=== PATIENT | male | born 1975 | race Caucasian/White ===

== ENCOUNTER 2017-05-28 22:52 | Emergency (ER) | payer OTHER ==
[2017-05-28 23:07] VITALS: BP 117/71; PULSE 109; RESP 18; TEMP 98; O2SAT 95
[2017-05-28] MEDS ORDERED: PAXI30TA7 PO (23:30)
[2017-05-28] MEDS ORDERED: D 50CAP2 PO (23:30)
[2017-05-28] MEDS ORDERED: HYDR12.56 PO (23:30)
[2017-05-28] MEDS ORDERED: LISI2.5T3 PO (23:30)
[2017-05-28] MEDS ORDERED: ALPR.25 PO (23:30)
[2017-05-28] MEDS ORDERED: MULTTAB67 PO (23:30)
[2017-05-28 23:53] LABS: BASOPHIL # 0.1 TH/MM3 (0-0.2); EOSINOPHIL # 0.2 TH/MM3 (0-0.4); EOSINOPHIL % 1.9 % (0.0-4.0); HEMATOCRIT 44.4 % (39.0-51.0); HEMOGLOBIN 14.8 GM/DL (13.0-17.0); LYMPH % 51.6 % (9.0-44.0); LYMPHOCYTE # 4.1 TH/MM3 (1.0-4.8); MEAN CELL VOLUME 88.5 FL (80.0-100.0); MEAN CORPUSCULAR HEMOGLOBIN 29.5 PG (27.0-34.0); MEAN CORPUSCULAR HGB CONC 33.3 % (32.0-36.0); MEAN PLATELET VOLUME 8.3 FL (7.0-11.0); MONO % 8.5 % (0.0-8.0); MONOCYTE # 0.7 TH/MM3 (0-0.9); PLATELET COUNT 253 TH/MM3 (150-450); RED BLOOD COUNT 5.01 MIL/MM3 (4.50-5.90); RED CELL DISTRIBUTION WIDTH 15.8 % (11.6-17.2)
--- NOTE | 2017-05-29 00:08 | PD ---
HPI Chief Complaint: Psychiatric Symptoms Time Seen by Provider: 23:41 Travel History International Travel<30 days: No Contact w/Intl Traveler<30days: No Traveled to known affect area: No History of Present Illness HPI Patient is a 41-year-old male presenting to the emergency department for psychiatric evaluation under Jarquin act. Patient reports a history of alcoholism , he had been sober for the last 8 months when he "slipped up" tonight. He reports drinking a few beers. Patient was allegedly caught drinking in secret by his mother. He then became upset per the Jarquin act report, obtained a shotgun from the garage and then took a shell into his bedroom with him. He then talks the shell at his mother saying "there is more where that came from". According to the Jarquin act he then attempted to give away all of his money and cards to his mother. Patient states that he is recently , his ex- cheated on him while he was . He has an 8-year-old daughter that he is concerned for. He is ashamed that he drank tonight. He is tearful and continues to report that he cannot mess up anymore. He denies any physical complaints at this time. He reports that he does go to AA meetings regularly. He did not attempt to contact his sponsor. Symptom onset is unknown, symptoms are moderate to severe nature. Symptoms are likely exacerbated due to alcohol use. PFSH Past Medical History Anxiety: Yes Diminished Hearing: No Hypertension: Yes Past Surgical History Surgical History: No Previous Surgery Social History Alcohol Use: Yes (OCC.) Tobacco Use: No Substance Use: No Allergies-Medications (Allergen,Severity, Reaction): Coded Allergies: No Known Allergies (Unverified , 05/28/17) Reported Meds & Prescriptions Reported Meds & Active Scripts Active Reported Multiple Vitamin 1 Tab 1 Tab PO DAILY D3 Maximum Strength (Cholecalciferol) 5,000 Unit Cap 5,000 Units PO DAILY Paxil (Paroxetine HCl) 30 Mg Tab 30 Mg PO DAILY Xanax (Alprazolam) 0.25 Mg Tab 0.25 Mg PO Q8H PRN Lisinopril 2.5 Mg Tab 2.5 Mg PO DAILY Hydrochlorothiazide 12.5 Mg Tab 12.5 Mg PO DAILY Review of Systems Except as stated in HPI: all other systems reviewed are Neg Psychiatric: Positive: Depression, Suicidal Ideations Physical Exam Narrative GENERAL: Overweight, well-developed, alert male. Presenting in no acute distress. SKIN: Warm and dry. HEAD: Atraumatic. Normocephalic. EYES: Pupils equal and round. No scleral icterus. No injection or drainage. ENT: No nasal bleeding or discharge. Mucous membranes pink and moist. NECK: Trachea midline. No JVD. CARDIOVASCULAR: Regular rate and rhythm. RESPIRATORY: No accessory muscle use. Clear to auscultation. Breath sounds equal bilaterally. GASTROINTESTINAL: Abdomen soft, non-tender, nondistended. Hepatic and splenic margins not palpable. MUSCULOSKELETAL: Extremities without clubbing, cyanosis, or edema. No obvious deformities. NEUROLOGICAL: Awake and alert. No obvious cranial nerve deficits. Motor grossly within normal limits. Five out of 5 muscle strength in the arms and legs. Normal speech. PSYCHIATRIC: Depressed mood and affect; insight and judgment impaired. Data Data Last Documented VS Vital Signs Date Time Temp Pulse Resp B/P (MAP) Pulse Ox O2 Delivery O2 Flow Rate FiO2 05/28/17 23:07 98.0 109 18 117/71 (86) 95 Orders Orders Complete Blood Count With Diff (05/28/17 23:30) Comprehensive Metabolic Panel (05/28/17 23:30) Urinalysis - C+S If Indicated (05/28/17 23:30) Psych Screen (05/28/17 23:30) Drug Screen, Random Urine (05/28/17 23:30) Alprazolam (Xanax) (05/29/17 00:15) Alcohol (Ethanol) (05/29/17 00:28) Labs Laboratory Tests Test 05/28/17 23:37 White Blood Count 8.0 TH/MM3 Red Blood Count 5.01 MIL/MM3 Hemoglobin 14.8 GM/DL Hematocrit 44.4 % Mean Corpuscular Volume 88.5 FL Mean Corpuscular Hemoglobin 29.5 PG Mean Corpuscular Hemoglobin Concent 33.3 % Red Cell Distribution Width 15.8 % Platelet Count 253 TH/MM3 Mean Platelet Volume 8.3 FL Neutrophils (%) (Auto) 37.0 % Lymphocytes (%) (Auto) 51.6 % Monocytes (%) (Auto) 8.5 % Eosinophils (%) (Auto) 1.9 % Basophils (%) (Auto) 1.0 % Neutrophils # (Auto) 3.0 TH/MM3 Lymphocytes # (Auto) 4.1 TH/MM3 Monocytes # (Auto) 0.7 TH/MM3 Eosinophils # (Auto) 0.2 TH/MM3 Basophils # (Auto) 0.1 TH/MM3 CBC Comment DIFF FINAL Differential Comment Blood Urea Nitrogen 11 MG/DL Creatinine 0.93 MG/DL Random Glucose 89 MG/DL Total Protein 7.9 GM/DL Albumin 3.7 GM/DL Calcium Level 8.5 MG/DL Alkaline Phosphatase 92 U/L Aspartate Amino Transf (AST/SGOT) 32 U/L Alanine Aminotransferase (ALT/SGPT) 51 U/L Total Bilirubin 0.1 MG/DL Sodium Level 141 MEQ/L Potassium Level 3.7 MEQ/L Chloride Level 102 MEQ/L Carbon Dioxide Level 24.3 MEQ/L Anion Gap 15 MEQ/L Estimat Glomerular Filtration Rate 90 ML/MIN MDM Medical Decision Making Medical Screen Exam Complete: Yes Emergency Medical Condition: Yes Interpretation(s) Laboratory Tests Test 05/28/17 23:37 White Blood Count 8.0 TH/MM3 Red Blood Count 5.01 MIL/MM3 Hemoglobin 14.8 GM/DL Hematocrit 44.4 % Mean Corpuscular Volume 88.5 FL Mean Corpuscular Hemoglobin 29.5 PG Mean Corpuscular Hemoglobin Concent 33.3 % Red Cell Distribution Width 15.8 % Platelet Count 253 TH/MM3 Mean Platelet Volume 8.3 FL Neutrophils (%) (Auto) 37.0 % Lymphocytes (%) (Auto) 51.6 % Monocytes (%) (Auto) 8.5 % Eosinophils (%) (Auto) 1.9 % Basophils (%) (Auto) 1.0 % Neutrophils # (Auto) 3.0 TH/MM3 Lymphocytes # (Auto) 4.1 TH/MM3 Monocytes # (Auto) 0.7 TH/MM3 Eosinophils # (Auto) 0.2 TH/MM3 Basophils # (Auto) 0.1 TH/MM3 CBC Comment DIFF FINAL Differential Comment Blood Urea Nitrogen 11 MG/DL Creatinine 0.93 MG/DL Random Glucose 89 MG/DL Total Protein 7.9 GM/DL Albumin 3.7 GM/DL Calcium Level 8.5 MG/DL Alkaline Phosphatase 92 U/L Aspartate Amino Transf (AST/SGOT) 32 U/L Alanine Aminotransferase (ALT/SGPT) 51 U/L Total Bilirubin 0.1 MG/DL Sodium Level 141 MEQ/L Potassium Level 3.7 MEQ/L Chloride Level 102 MEQ/L Carbon Dioxide Level 24.3 MEQ/L Anion Gap 15 MEQ/L Estimat Glomerular Filtration Rate 90 ML/MIN Vital Signs Date Time Temp Pulse Resp B/P (MAP) Pulse Ox O2 Delivery O2 Flow Rate FiO2 05/28/17 23:07 98.0 109 18 117/71 (86) 95 Differential Diagnosis Mood disorder versus substance abuse versus suicidal ideations versus depression versus other Narrative Course Patient is a 41-year-old male presenting to the emergency department for psychiatric evaluation under Jarquin act. Patient is an alcoholic who had a lapse in his sobriety this evening subsequently he was found by his mother drinking and then grabbed his shotgun and a shotgun shell and went into his bedroom. He then threw the shotgun shell of his mother stating that there was more that came from. Patient reported to me that he is selling off his belongings in order to have money to get his own place. He is currently staying with his mother which he feels embarrassed about. He has no physical complaints at this time. Patient's vital signs are stable. Mental health screening discussed with the patient. Psychiatric screen ordered. Labs reviewed , no acute finding identified. Alcohol level is pending. Patient is medically cleared for psychiatric evaluation. Diagnosis Primary Impression: Medical clearance for psychiatric admission Condition: Stable Kayla Ruiz May 29, 2017 00:08
[2017-05-29] MEDS ORDERED: ALPRAZolam 0.5 MG TAB PO ONE ×2 (00:15→21:00)
[2017-05-29 00:45] LABS: ALKALINE PHOSPHATASE 92 U/L (45-117); TOTAL BILIRUBIN ADULT 0.1 MG/DL (0.2-1.0); TOTAL PROTEIN 7.9 GM/DL (6.4-8.2)
[2017-05-29 00:48] LABS: ALBUMIN 3.7 GM/DL (3.4-5.0); ALT (GPT) 51 U/L (12-78); AST (GOT) 32 U/L (15-37); BICARBONATE 24.3 MEQ/L (21.0-32.0); BLOOD UREA NITROGEN 11 MG/DL (7-18); CALCIUM 8.5 MG/DL (8.5-10.1); CHLORIDE 102 MEQ/L (98-107); CREATININE 0.93 MG/DL (0.60-1.30); GLOMERULAR FILTRATION RATE 90 ML/MIN (>89); GLUCOSE,RANDOM 89 MG/DL (74-106); SODIUM (NA) 141 MEQ/L (136-145)
[2017-05-29 02:34] VITALS: BP 111/53; PULSE 82; RESP 18; O2SAT 94
[2017-05-29 06:51] LABS: BILIRUBIN, URINE NEG (NEG); BLOOD, URINE NEG (NEG); GLUCOSE,URINE NEG (NEG); KETONE, URINE 40 mg/dL (NEG); NITRITE,URINE NEG (NEG); SQUAMOUS EPITHELIAL CELL URINE <1 /hpf (0-5); URINE COLOR LIGHT-YELLOW (YELLW/STRAW); URINE LEUKOCYTE ESTERASE NEG (NEG)
[2017-05-29 08:45] VITALS: BP 108/55; PULSE 78; RESP 16; TEMP 98.3; O2SAT 99
[2017-05-29] MEDS ORDERED: ONDANSETRON ODT 4 MG TAB PO ONE (09:30)
[2017-05-29] MEDS ORDERED: PANT20 PO (18:01)
[2017-05-29] MEDS ORDERED: AMBI5TAB PO (18:02)
[2017-05-29] MEDS ORDERED: Magnesium (18:03)
[2017-05-29] MEDS ORDERED: ASPI81TA23 PO (18:04)
[2017-05-29 19:51] VITALS: BP 167/94; PULSE 83; RESP 22; TEMP 97.5; O2SAT 96
[2017-05-29] MEDS ORDERED: LISINOPRIL 5 MG TAB PO ONE (21:00)
[2017-05-29] MEDS ORDERED: PARoxetine HCL 20 MG TAB PO ONE (21:00)
[2017-05-30 00:34] VITALS: BP 134/69; PULSE 70; RESP 18
[2017-05-30 04:52] VITALS: BP 117/69; PULSE 78; RESP 17; TEMP 98.6; O2SAT 97
[2017-05-30 09:45] VITALS: BP 170/94; PULSE 78; RESP 24; TEMP 99.2; O2SAT 98
--- NOTE | 2017-05-30 10:00 | PD ---
History of Present Illness Chief Complaint: Psychiatric Symptoms Time Seen by Provider: 09:45 Travel History International Travel<30 Days: No Contact w/Intl Traveler<30days: No Known affected area: No Legal Status Legal Status: Jarquin Act Jarquin Act Signed By: Rolf Church History of Present Illness: History of Present Illness HPI Patient is a 41-year-old , unemployed male currently living with his mother, with history of alcohol dependence, presenting to the emergency department for psychiatric evaluation under Jarquin act. The Jarquin act alleges that the patient was caught drinking in secret by his mother and he became upset. " Sigifredo then obtain a shotgun from within the garage and then took a shell into his bedroom. Sigifredo then tossed this shell at his mother saying there is more where that came from. Sigifredo then attempted to get away all of his money and cards to his mother." The patient on arrival to the ED had a blood alcohol level of 279. The patient was allowed to sober up clinically before this evaluation was completed. While the patient was under observation he presented no behavioral concerns, no suicidality, no agitation. Electronic medical record is reviewed. There is no previous contact with [facility] psychiatry. Patient is seen. Patient is clinically sober with no symptom of withdrawal. His speech is clear and logical. His affect is blunted. There is no evidence of any hallucinations, no delusions and no paranoia. The patient does report that he feels saddened over his recent relapse. He states that he had been sober for 8 months and recently relapsed. While intoxicated he was involved in an argument with his mother. She asked him to leave the house and he went to the garage to pack his belongings. He has a shot gun that belonged to his father and he was going to take it with him. He alleges that he gave his mother the ammunition that he had. And that in fact he did throw the ammunition to her. She also asked him for his credit cards in his money so that he would not go while buying any more liquor. That is his explanation for having given her his credit cards and his villaseñor. The patient had plans to [facility]. The patient at this time presents no suicidal or homicidal ideation, intent or plan. He states that he has a little girl who is 8 years old and whom he has shared custody so he needs to be well for her. He also talks about beginning once again to work on his sobriety. He has used AA in the past and is interested on doing so again. I have spoken with him regarding sober living facilities in the area and he is interested. He also shows interest in the [facility] program through [facility] Telephone call to his mother for collateral at [phone]. She spoke to me briefly. She would like for him to receive counseling and help with his substance use. She has the shotgun. Patient will be going to his own house if he is discharged.. PFSH Past Medical History Anxiety: Yes Diminished Hearing: No Hypertension: Yes Past Surgical History Surgical History: No Previous Surgery Psychiatric History Psychiatric History Hx Psychiatric Treatment: HX: DEPRESSION, ANXIETY. NO PAST ADMISSIONS TO [facility]. No previous suicide attempt. DENIES ANY PAST INPATIENT ADMISSIONS. CURRENTLY IS SEEING A THERAPIST. History of Inpatient Treatment: No Guns or firearms in home: Yes Social History Patient is for 3 years after an 18 year marriage. He is living with his mom for the past 4 years. 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 He has an 8-year-old daughter whom he shares custody with. Hx Alcohol Use: Yes (OCC.) Hx Tobacco Use: No Hx Substance Use: Yes Substance Use Type: Alcohol Hx of Substance Use Treatment: Yes Family Psychiatric History Negative Allergies-Medications (Allergen,Severity, Reaction): Coded Allergies: No Known Allergies (Unverified , 05/28/17) Reported Meds & Prescriptions Reported Meds & Active Scripts Active Reported Aspirin EC (Aspirin) 81 Mg Tabdr 81 Mg PO DAILY [Magnesium ] Ambien (Zolpidem Tartrate) 5 Mg Tab 5 Mg PO HS PRN Protonix (Pantoprazole Sodium) 20 Mg Tab 20 Mg PO DAILY Multiple Vitamin 1 Tab 1 Tab PO DAILY D3 Maximum Strength (Cholecalciferol) 5,000 Unit Cap 5,000 Units PO DAILY Paxil (Paroxetine HCl) 30 Mg Tab 40 Mg PO DAILY Xanax (Alprazolam) 0.25 Mg Tab 0.5 Mg PO Q8H PRN Lisinopril 2.5 Mg Tab 2.5 Mg PO DAILY Hydrochlorothiazide 12.5 Mg Tab 12.5 Mg PO DAILY Review of Systems Musculoskeletal: COMPLAINS OF: Joint pain Psychiatric: COMPLAINS OF: Depression Except as stated in HPI: all other systems reviewed are Neg Mental Status Examination Appearance: Disheveled Consciousness: Alert Orientation: x4 Motor Activity: Normal gait Speech: Unremarkable Language: Adequate Fund of Knowledge: Adequate Attention and Concentration: Adequate Memory: Unremarkable Mood: Anxious Affect: Appropriate Thought Process & Associations: Intact, Logical, Goal directed Thought Content: Appropriate Hallucination Type: None Delusion Type: None Suicidal Ideation: No Suicidal Plan: No Suicidal Intention: No Homicidal Ideation: No Homicidal Plan: No Homicidal Intention: No MDM Medical Decision Making Medical Record Reviewed: Yes Assessment/Plan History of Present Illness HPI Patient is a 41-year-old male with hx of alcohol dependence who in context of relapse and was caught drinking by his mother was involved in an argument with her. He was intoxicated at the time and presented to the ED with blood alcohol level of 279. Was monitored for extended period of time. No behavioral dysregulation and no suicidality. Patient denies any suicdal or homicidal ideation, intent or plan. He is future oriented. Wants to work on his sobriety, " maybe get a job". There is no suicdal or homicidal ideation, intent or plan. Cognitively intact. Contracts for safety. Will be provided referrals for [facility] substance abuse clinic as well as for sober living homes. Patient does not meet criteria to remain under the Jarquin act and it will be lifted. Psychiatrically clear for discharge from the ED. Orders Orders Diet Regular Basic (05/29/17 Dinner) Lisinopril (Prinivil) (05/29/17 21:00) Paroxetine (Paxil) (05/29/17 21:00) Alprazolam (Xanax) (05/29/17 21:00) Diet Regular Basic (05/30/17 Breakfast) Results Vital Signs Date Time Temp Pulse Resp B/P (MAP) Pulse Ox O2 Delivery O2 Flow Rate FiO2 05/30/17 09:45 99.2 78 24 170/94 (119) 98 05/30/17 04:52 98.6 78 17 117/69 (85) 97 Room Air 05/30/17 00:34 70 18 134/69 (90) 05/29/17 19:51 97.5 83 22 167/94 (118) 96 Room Air Diagnosis Primary Impression: Medical clearance for psychiatric admission Additional Impressions: Alcohol abuse Alcohol-induced mood disorder Psychiatrically Cleared: Yes Med/ Other Pt Specific Info: No Change to Meds Disposition: 01 DISCHARGE HOME Condition: Stable Problem Qualifiers Tracey Chand May 30, 2017 10:00
--- NOTE | 2017-05-30 11:00 | PD ---
Physical Exam Date Seen by Provider: May 30, 2017 Time Seen by Provider: 10:57 Narrative For full history and physical examination please see previous providers note Data Data Last Documented VS Vital Signs Date Time Temp Pulse Resp B/P (MAP) Pulse Ox O2 Delivery O2 Flow Rate FiO2 05/30/17 09:45 99.2 78 24 170/94 (119) 98 05/30/17 04:52 Room Air Orders Orders Complete Blood Count With Diff (05/28/17 23:30) Comprehensive Metabolic Panel (05/28/17 23:30) Urinalysis - C+S If Indicated (05/28/17 23:30) Psych Screen (05/28/17 23:30) Drug Screen, Random Urine (05/28/17 23:30) Alprazolam (Xanax) (05/29/17 00:15) Alcohol (Ethanol) (05/29/17 00:28) Diet Regular Basic (05/29/17 Breakfast) Ondansetron Odt (Zofran Odt) (05/29/17 09:30) Diet Regular Basic (05/29/17 Dinner) Lisinopril (Prinivil) (05/29/17 21:00) Paroxetine (Paxil) (05/29/17 21:00) Alprazolam (Xanax) (05/29/17 21:00) Diet Regular Basic (05/30/17 Breakfast) Ed Discharge Order (05/30/17 10:53) Labs Laboratory Tests Test 05/28/17 23:37 05/29/17 06:10 White Blood Count 8.0 TH/MM3 Red Blood Count 5.01 MIL/MM3 Hemoglobin 14.8 GM/DL Hematocrit 44.4 % Mean Corpuscular Volume 88.5 FL Mean Corpuscular Hemoglobin 29.5 PG Mean Corpuscular Hemoglobin Concent 33.3 % Red Cell Distribution Width 15.8 % Platelet Count 253 TH/MM3 Mean Platelet Volume 8.3 FL Neutrophils (%) (Auto) 37.0 % Lymphocytes (%) (Auto) 51.6 % Monocytes (%) (Auto) 8.5 % Eosinophils (%) (Auto) 1.9 % Basophils (%) (Auto) 1.0 % Neutrophils # (Auto) 3.0 TH/MM3 Lymphocytes # (Auto) 4.1 TH/MM3 Monocytes # (Auto) 0.7 TH/MM3 Eosinophils # (Auto) 0.2 TH/MM3 Basophils # (Auto) 0.1 TH/MM3 CBC Comment DIFF FINAL Differential Comment Blood Urea Nitrogen 11 MG/DL Creatinine 0.93 MG/DL Random Glucose 89 MG/DL Total Protein 7.9 GM/DL Albumin 3.7 GM/DL Calcium Level 8.5 MG/DL Alkaline Phosphatase 92 U/L Aspartate Amino Transf (AST/SGOT) 32 U/L Alanine Aminotransferase (ALT/SGPT) 51 U/L Total Bilirubin 0.1 MG/DL Sodium Level 141 MEQ/L Potassium Level 3.7 MEQ/L Chloride Level 102 MEQ/L Carbon Dioxide Level 24.3 MEQ/L Anion Gap 15 MEQ/L Estimat Glomerular Filtration Rate 90 ML/MIN Ethyl Alcohol Level 279 MG/DL Urine Color LIGHT-YELLOW Urine Turbidity CLEAR Urine pH 5.0 Urine Specific [place] 1.015 Urine Protein NEG mg/dL Urine Glucose (UA) NEG mg/dL Urine Ketones 40 mg/dL Urine Occult Blood NEG Urine Nitrite NEG Urine Bilirubin NEG Urine Urobilinogen LESS THAN 2.0 MG/DL Urine Leukocyte Esterase NEG Urine RBC LESS THAN 1 /hpf Urine WBC 3 /hpf Urine Squamous Epithelial Cells <1 /hpf Microscopic Urinalysis Comment CULT NOT INDICATED Urine Opiates Screen NEG Urine Barbiturates Screen NEG Urine Amphetamines Screen NEG Urine Benzodiazepines Screen POS Urine Cocaine Screen NEG Urine Cannabinoids Screen NEG MDM Medical Record Reviewed: Yes Supervised Visit with VONDA: No Narrative Course Patient is 41-year-old male that presented to emergency department under [employer] for psychiatric evaluation. He was seen and medically cleared emergency department. He was then seen and evaluated by psychiatrist. Patient was diagnosed with alcohol induced mood disorder. He is encouraged to follow-up with his primary doctor in [place]. Patient stable for discharge. Diagnosis Primary Impression: Alcohol-induced mood disorder Additional Impression: Alcohol abuse [facility] Patient Instructions: Alcohol Dependence (ED), General Instructions Additional Instruction: Follow-up with [place] Continue AA meetings Follow-up with your primary doctor Return to emergency department for any new or worsening symptoms Med/Other Pt SpecificInfo: No Change to Meds Disposition: 01 DISCHARGE HOME Condition: Stable Kayla Ruiz May 30, 2017 11:00
== END 2017-05-30 11:32 | disposition home or self-care (01) ==
LOC: NEDAMB 22:52 → NEPJ 05-30 11:32
DX: F10.14 Alcohol abuse with alcohol-induced mood disorder (principal); Y90.8 Blood alcohol level of 240 mg/100 ml or more; F41.9 Anxiety disorder, unspecified; I10 Essential (primary) hypertension; F32.9 Major depressive disorder, single episode, unspecified; M25.50 Pain in unspecified joint
CPT/HCPCS: 80053; 80307; 81001; 85025; 99284